=== PATIENT | male | born 1940 | race African-American/Black ===

== ENCOUNTER 2017-08-26 10:38 | Inpatient (IN) | payer MEDICARE, MEDICAID ==
[2017-08-26 11:26] LABS: #Basophils 0.1 thou/uL (0.0-0.2); #Lymphocytes 0.7 thou/uL (1.20-3.40); #Monocytes 0.6 thou/uL (0.11-0.59); #Neutrophils 4.5 thou/uL (1.40-6.50); %Basophils 1.1 % (0.0-1.0); %Eosinophils 0.2 % (0.0-10.0); %Lymphocytes 11.5 % (21.0-51.0); %Monocytes 10.3 % (0.0-10.0); %Neutrophils 76.9 % (42.0-75.0); Hemoglobin 10.5 g/dL (14.0-18.0); Mean Corpuscular HGB CONC 32.4 g/dL (32.0-36.0); Mean Corpuscular Hemoglobin 27.4 pg (27.0-31.0); Mean Corpuscular Volume 84.5 fl (80.0-94.0); Mean Platelet Volume 7.1 fL (7.4-10.4); Platelet Count 171 thou/uL (130-400); RBC Distribution Width 15.4 % (11.5-14.5); Red Blood Cell (RBC) Count 3.83 mill/uL (4.70-6.10); White Blood Cell (WBC) Count 5.9 thou/uL (4.8-10.8)
[2017-08-26 11:39] LABS: ALT (SGPT) 22 U/L (8-55); AST (SGOT) 37 U/L (5-34); Alkaline Phosphatase 106 U/L (40-150); Anion Gap 13 mmol/L (10-20); BUN (Urea Nitrogen) 44 mg/dL (8.4-25.7); Bilirubin, Total 0.3 mg/dL (0.2-1.2); Calc. Creatinine Clearance 0 mL/min (70-130); Calcium 9.7 mg/dL (7.8-10.44); Carbon Dioxide 26 mmol/L (23-31); Chloride 103 mmol/L (98-107); Estimated GFR-MDRD 55; Globulin 4.4 g/dL (2.4-3.5); Glucose 107 mg/dL (83-110); Potassium 5.1 mmol/L (3.5-5.1); Protein, Total 8.4 g/dL (5.8-8.1); Sodium 137 mmol/L (136-145)
[2017-08-26] MEDS ORDERED: Levofloxacin 500 mg/D5W 100 ml Premix Bag ONE (11:43)
--- NOTE | 2017-08-26 12:03 | RAD ---
PORTABLE CHEST: History: Dyspnea. Comparison: 02-22-17, 08-11-16 FINDINGS: Heart size is slightly enlarged. The right hilar and lower lobe changes were present on the previous exam are felt to be fairly similar. The right hilar changes may be slightly more prominent, but this could be just related to the portable technique. The parenchymal scarring in the left lung appears st able. IMPRESSION: Questionable slightly increased density to the right hilar. Some of this may just be related to the p ortable technique. I cannot exclude the possibility that there is some increase to the mass like area in the right hilar region which was noted on the prior CT of 12-23-16. It may be helpful to obtained a follow up chest CT to evaluate for interval change in this area. POS: HARJEET
[2017-08-26] MEDS ORDERED: ISOVUE-370 76%-LOCM 1 ML ONE (13:28)
[2017-08-26] MEDS ORDERED: Benzonatate 100 MG CAP PO PRN (14:50)
[2017-08-26] MEDS ORDERED: Ondansetron ODT 4 MG TAB PO PRN (16:04)
[2017-08-26] MEDS ORDERED: Acetaminophen 325 MG TAB PO PRN (16:04)
[2017-08-26] MEDS ORDERED: Guaifenesin DM 100-10/5 ML UDCUP PO PRN (16:15)
[2017-08-26] MEDS ORDERED: traMADol HCl 50 MG TAB PO PRN (16:15)
[2017-08-26] MEDS ORDERED: Milk Of Magnesia 30 ML UDCUP PO PRN (16:15)
[2017-08-26] MEDS ORDERED: Docusate 100 MG CAP PO PRN (16:15)
[2017-08-26] MEDS ORDERED: diphenhydrAMINE 25 MG CAP PO PRN (16:15)
[2017-08-26] MEDS ORDERED: Mag-Al Plus 1200 MG/1200 MG/120 MG/30 ML UDCUP PO PRN (16:15)
[2017-08-26] MEDS ORDERED: Hydrocortisone Acetate 25 MG Suppository PR PRN (16:15)
[2017-08-26] MEDS ORDERED: Bisacodyl 5 MG TAB PO PRN (16:15)
--- NOTE | 2017-08-26 18:31 | CT ---
CT CHEST WITH CONTRAST: 08/26/17 Multiple axial tomograms obtained through the chest with IV enhancement. HISTORY: Evaluate right hilar mass. Comparison made to CT of 12/23/16. A mass-like area in the right hilum has been described on prior chest CTs. This mass-like density is again seen located in the right infrahilar region surrounding a small right perihilar pulmonary arter y. This density has slightly decreased in size when compared to the 12/23/16 exam as seen on the palencia l image. It measures approximately 2.4 cm today on the coronal view where previously measurements wer e recorded at approximately 2.6 cm. it has a similar size and appearance in the axial view. It is ass ociated with some parenchymal stranding and linear scarring and/or atelectasis which also has a simil ar appearance which extends into the right middle lobe. On today's exam, there continues to be chronic changes in both posterior lung bases. There is cystic changes in the right lung base which were present previously. However, today there is more confluent density in the right posterior lung base when compared to prior study. This would be suspicious for a new inflammatory consolidation in the posterior right lower lobe today. Other chronic changes appear stable. There is linear stranding in the left upper lobe which has a sim ilar appearance. The pulmonary arteries are opacified proximally and there is no evidence of proximal pulmonary embolus. Thoracic aorta is opacified and appears unremarkable with no evidence of dissecti on. There is an anterior abdominal wall hernia in the epigastric region which was present previously and appears stable. IMPRESSION: 1. Chronic lung changes again noted which appears stable. A mass-like density in the right hilar region extending into the right middle lobe with linear opacification appears stable as described ab ove. 2. Chronic changes in the posterior right lung base with cystic change again noted. There is new opacification in the posterior right lung base today which would be concerning for an acute inflamma tory consolidation. Other chronic findings as noted above appears stable. POS: HARJEET
[2017-08-26] MEDS ORDERED: Ipratropium Bromide 2.5 ml Neb NEB SCH (19:00)
--- NOTE | 2017-08-26 20:52 | PDOC.EVN ---
Event Note - Event Note Event Note: Patient seen and examined. Case discussed with Dr. Irizarry and Aaron and their H&Ps reviewed and repeated by me. Agree with A/P. Mr. Perry is a 77 y/o BM with PMH of COPD, RA, HTN, h/o pericardial effusion who was being treated at [facility] for flu-like illness presents today with worsening dyspnea. He states he is more fatigued and generally feels worse than normal. Dyspnea is at rest and with any exertion. He denies chest pain. Also states he has increasing sputum production- yellow and mild blood tinged and low grade fever. No edema. Denies weight loss, night sweats, chills. VS reviewed Gen: mildly ill appearing, no distress CV: mild tachycardia, no m, g, r Lungs: diffuse wheezing. no crackles Ext: no edema MSK: B hands with boutiennere and swan neck deformity secondary to RA Labs and imaging reviewed. 1) Acute dyspnea- multifactoral. Differential includes Flu-like illness, COPD exacerbation, HCAP. O2 to keep sats >90-92% 2) COPD exacerbation- steroids, nebs, O2 as needed. 3) Elevated BNP- ECHO ordered. clinically does not appear overloaded as no edema or crackles 4) New RLL infiltrate on CT chest- low-grade temp and increased sputum. blood cx. Will give Levaquin and Vanc as lives in [place]- to treat HCAP 5) Flu-like illness-continue tamiflu 6) CKD stage 3, stable 7) RA- cont methotrexate.
[2017-08-26] MEDS: Folic Acid 1 MG TAB PO SCH (22:12)
[2017-08-26] MEDS: Oseltamivir 75 MG CAP PO SCH (22:12)
[2017-08-26] MEDS: Carvedilol 6.25 MG TAB PO SCH (22:12)
[2017-08-26] MEDS: Hydrocortisone 1% Cream 30 GM TUBE TOP SCH (22:15)
[2017-08-26] MEDS: Docusate 100 MG CAP PO SCH (22:15)
[2017-08-27 04:44] LABS: #Lymphocytes 0.6 thou/uL (1.20-3.40); #Monocytes 0.3 thou/uL (0.11-0.59); %Basophils 0.4 % (0.0-1.0); %Eosinophils 0.6 % (0.0-10.0); %Lymphocytes 16.2 % (21.0-51.0); %Monocytes 6.2 % (0.0-10.0); %Neutrophils 76.6 % (42.0-75.0); Hemoglobin 9.6 g/dL (14.0-18.0); Mean Corpuscular HGB CONC 32.1 g/dL (32.0-36.0); Mean Corpuscular Hemoglobin 27.4 pg (27.0-31.0); Mean Corpuscular Volume 85.4 fl (80.0-94.0); Mean Platelet Volume 7.2 fL (7.4-10.4); Platelet Count 144 thou/uL (130-400); RBC Distribution Width 15.3 % (11.5-14.5)
[2017-08-27 04:48] LABS: Anion Gap 13 mmol/L (10-20); BUN (Urea Nitrogen) 38 mg/dL (8.4-25.7); Calc. Creatinine Clearance 37 mL/min (70-130); Calcium 9.2 mg/dL (7.8-10.44); Carbon Dioxide 28 mmol/L (23-31); Chloride 102 mmol/L (98-107); Estimated GFR-MDRD 57; Glucose 102 mg/dL (83-110); Potassium 4.8 mmol/L (3.5-5.1); Sodium 138 mmol/L (136-145)
[2017-08-27 05:27] VITALS: BMI 23.8
--- NOTE | 2017-08-27 06:33 | PDOC.FM ---
- Subjective Subjective: Patient is feeling better this morning. Reports less SOB today. No acute events overnight. - Objective MAR Reviewed: Yes Vital Signs & Weight: Vital Signs (12 hours) Temp Pulse Resp BP BP Pulse Ox 08/27/17 02:01 105 H 18 95 08/26/17 22:20 104 H 16 96 08/26/17 22:12 157/56 H 08/26/17 20:00 97.9 F 102 H 20 157/56 H 96 Weight Weight 63.5 kg I&O: 08/25/17 08/26/17 08/27/17 06:59 06:59 06:59 Intake Total 120 Output Total 320 Balance -200 Result Diagrams: 08/27/17 03:23 08/27/17 03:23 <Elissa Irizarry - Last Filed: 08/27/17 09:37> - Objective Vital Signs & Weight: Vital Signs (12 hours) Temp Pulse Resp BP BP Pulse Ox 08/27/17 11:01 96 20 08/27/17 08:11 103 H 142/47 H 08/27/17 08:06 142/47 H 08/27/17 07:50 98.3 F 103 H 16 142/47 H 96 08/27/17 07:37 94 L 08/27/17 07:35 102 H 20 94 L 08/27/17 02:01 105 H 18 95 Weight Admit Weight 63.616 kg Weight 63.5 kg I&O: 08/26/17 08/27/17 08/28/17 06:59 06:59 06:59 Intake Total 120 Output Total 320 Balance -200 Result Diagrams: 08/27/17 03:23 08/27/17 03:23 <Elieser Chase - Last Filed: 08/27/17 11:16> Phys Exam - Physical Examination Constitutional: NAD HEENT: moist MMs Neck: no nodes, full ROM rales diffusely Cardiovascular: RRR, no significant murmur Gastrointestinal: soft, non-tender Musculoskeletal: no edema, pulses present obvious deformity of hands and feet from RA Neurological: moves all 4 limbs Psychiatric: A&O x 3 <Elissa Irizarry - Last Filed: 08/27/17 09:37> Dx/Plan (1) Pneumonia Code(s): J18.9 - PNEUMONIA, UNSPECIFIED ORGANISM Status: Suspected (2) Elevated brain natriuretic peptide (BNP) level Code(s): R79.89 - OTHER SPECIFIED ABNORMAL FINDINGS OF BLOOD CHEMISTRY Status : Acute (3) COPD exacerbation Code(s): J44.1 - CHRONIC OBSTRUCTIVE PULMONARY DISEASE W (ACUTE) EXACERBATION Status: Acute (4) Influenza-like illness Code(s): R69 - ILLNESS, UNSPECIFIED Status: Acute (5) Lung mass Code(s): R91.8 - OTHER NONSPECIFIC ABNORMAL FINDING OF LUNG FIELD Status: Chronic (6) GERD (gastroesophageal reflux disease) Code(s): K21.9 - GASTRO-ESOPHAGEAL REFLUX DISEASE WITHOUT ESOPHAGITIS Status: Chronic (7) Failure to thrive in adult Status: Chronic (8) CKD (chronic kidney disease) stage 3, GFR 30-59 ml/min Code(s): N18.3 - CHRONIC KIDNEY DISEASE, STAGE 3 (MODERATE) Status: Chronic (9) Normocytic anemia Code(s): D64.9 - ANEMIA, UNSPECIFIED Status: Chronic (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 - FELTY'S SYNDROME, UNSPECIFIED SITE Status: Chronic (11) HTN (hypertension) Code(s): I10 - ESSENTIAL (PRIMARY) HYPERTENSION Status: Chronic - Plan Plan: Probable New Onset CHF - elevate BNP 2700 - echo pending - lasix 40IV daily - probably contributing to SOB, but likely multifactorial with influenza-like illness and hx COPD COPD Exacerbation - severe wheezing on exam with recent increase in sputum production - Duonebs q4h - prednisone 40mg daily x5 days - O2 as needed to keep sats 88-92% Possible PNA s/p influenza-like illness - Flu negative on 08/24 and 08/26, but sx consistent - patient has been on Tamiflu, will continue course - Levaquin and Vancomycin for possible PNA seen on CT chest R Lung Mass - stable from last exam - consider consult Pulm for recs - patient with failure to thrive and smoking hx as well as blood tinged sputum, concern for malignancy COPD - continue home meds RA with Felty's Syndrome - continue home methotrexate and pain meds GERD - Protonix CKD III - renally dose meds - at baseline - monitor with new med of Lasix Normocytic Anemia - patient on Fe at home - will get iron studies, B12, and folate to confirm type of anemia - suspect Anemia of Chronic Disease Failure to Thrive - consult dietary - Ensure TID HTN - continue home Lisinopril <Elissa Irizarry - Last Filed: 08/27/17 09:37> Attending Addendum - Attending Addendum I personally evaluated the patient and discussed the management with Dr. Irizarry. I agree with the History, Examination, Assessment and Plan documented above with any addition or exceptions noted below. Pt is currently been treated for a post influenza pna, possible new onset CHF, echo pending and mild COPD exac. He has followed Dr. Clarke in the past, but has not been compliant with follow up or follow up CTs, declining f/u appointments. We will allow him to make the decision but have recommended follow up with him regarding this stable R hilar density on his CT. <Elieser Chase - Last Filed: 08/27/17 11:16>
[2017-08-27] MEDS: Docusate 100 MG CAP PO SCH ×3 (08:04→22:22)
[2017-08-27] MEDS: Ascorbic Acid 500 mg Chewable Tablet PO SCH (08:04)
[2017-08-27] MEDS: Folic Acid 1 MG TAB PO SCH ×2 (08:05→22:14)
[2017-08-27] MEDS: predniSONE 20 MG TAB PO SCH (08:05)
[2017-08-27] MEDS: Ferrous Sulfate 325 MG TAB PO SCH (08:06)
[2017-08-27] MEDS: Carvedilol 6.25 MG TAB PO SCH ×2 (08:06→22:14)
[2017-08-27] MEDS: Oseltamivir 75 MG CAP PO SCH ×2 (08:06→22:20)
[2017-08-27] MEDS: Hydrocortisone 1% Cream 30 GM TUBE TOP SCH ×2 (08:07→22:20)
[2017-08-27] MEDS: Enoxaparin Sodium 40 MG/0.4 ML SYRINGE SC SCH (08:07)
[2017-08-27] MEDS: Lisinopril 2.5 MG TAB PO SCH (08:11)
--- NOTE | 2017-08-27 08:58 | HP-2 ---
CODE STATUS: FULL. PRIMARY CARE PHYSICIAN: Sherlyn Hawthorne M.D. ATTENDING: Meron Walker M.D. RESIDENT: Elissa Irizarry D.O. HISTORIAN: Patient. CHIEF COMPLAINT: Shortness of breath. HISTORY OF PRESENT ILLNESS: The patient is a 77-year-old male with past medical history of COPD and a recent flu-like illness two days ago being treated with Tamiflu, coming from [facility] with worsening shortness of breath and cough with blood tinged yellow sputum. The patient also reports increased sputum production. Denies chest pain. No lower extremity edema as well as no fever. In the ER, he was given 500 mL bolus as well as Levaquin and vancomycin for presumed overlying pneumonia. PAST MEDICAL HISTORY: 1. Gastroesophageal reflux disease. 2. RA with Felty's syndrome. 3. Hypertension. 4. Chronic obstructive pulmonary disease. 5. Adult failure to thrive. 6. Chronic kidney disease 3. 7. Arthritis. PAST SURGICAL HISTORY: Anal polyp removed and pericardial window in 2016. ALLERGIES: No known drug allergies. MEDICATIONS: The patient is well aware of his medications that listed in the computer as such, but no doses are found. Acetaminophen, carvedilol, Colace, ferrous sulfate, folic acid, guaifenesin DM, hydrocortisone, Incruse Ellipta, DuoNebs, methotrexate, sodium, milk of magnesia, Prilosec, Tamiflu and tramadol as well as vitamin C. FAMILY HISTORY: Noncontributory. SOCIAL HISTORY: Denies current use of tobacco or any drug use, but does have former tobacco history about 1 pack a day for nearly 15 years. REVIEW OF SYSTEMS: A 12-point review of systems was performed and found to be positive for those mentioned in HPI as well as shortness of breath, cough, and generalized weakness. All other ROS negative. PHYSICAL EXAMINATION: VITAL SIGNS: Blood pressure 131/81, pulse 95, respiratory rate 24, T-max 99.1, pulse ox 100% on 2 liters, current weight 54.1 kilos. GENERAL: The patient is alert and oriented x3 in no acute distress, sitting on the edge of the bed. EYES: PERRLA, EOMI. ENT: Oropharynx within normal limits. NECK: Supple, without lymphadenopathy. CARDIOVASCULAR: Regular rate and rhythm, no murmurs. RESPIRATORY: Increased normal effort. Rales at the bases. Expiratory wheezing throughout as well as large ventral hernia. SKIN: Warm and dry. ABDOMEN: Soft, nontender. EXTREMITIES: No clubbing or cyanosis. The patient does have trace edema bilaterally. MUSCULOSKELETAL: Structure within normal limits. Tone within normal limits. NEUROLOGIC: GCS of 15. PSYCHIATRIC: Appropriate. LABORATORY DATA: 1. CBC: 5.9, 10.5, 32.4, platelets 171. 2. CMP: Sodium 137, potassium 5.1, chloride 103, CO2 of 26, BUN 45, creatinine 1.49, glucose 107, GFR of 55, calcium 9.7, total protein 8.4, albumin 4.0, AST 37, ALT 22, alkaline phosphatase 106, total bilirubin 0.3, lactic acid 1.0. 3. BNP 2700. 4. EKG with left ventricular hypertrophy and prolonged QT, normal sinus rhythm. 5. Chest x-ray shows a slightly increased density in the right hilar mass, increased mass size. IMAGING: CT was done on 12/23/2016, no new images yet as of now. ASSESSMENT AND PLAN: 1. Post-flu, pneumonia, no overt infiltrate on chest x-ray. Will get a chest CT to further evaluate. Patient not hypoxic at this time. Will continue vancomycin and Levaquin. 2. Chronic obstructive pulmonary disease. We will give DuoNebs, home meds, and consider steroids if not at home. 3. Elevated BNP. We get an echo. Give Lasix 40 IV daily 4. Rheumatoid arthritis with Felty's. Continue methotrexate. 5. Chronic kidney disease 3. Limit nephrotoxic medications. 6. Gastroesophageal reflux disease. We will provide with home medications as well as Protonix. 7. Failure to thrive, decreased appetite. Dietitian consult in place. We will give Ensure and consider mirtazapine. DISPOSITION AND LENGTH OF HOSPITAL STAY: 1-2 days. Symptomatic medications will be provided. History and physical exam as well as management will be discussed with Dr. Walker. MOODY
[2017-08-27] MEDS ORDERED: Furosemide 40 MG/4 ML VIAL SLOW IVP SCH (09:00)
[2017-08-27] MEDS ORDERED: Oseltamivir 75 MG CAP PO SCH (09:00)
[2017-08-27 09:04] LABS: Vitamin B12 1207 pg/mL (211-911)
[2017-08-27] MEDS: Vancomycin HCl 1 GM in Premix Bag 1 BAG IVPB SCH (12:08)
[2017-08-27 12:14] LABS: Folate (Folic Acid) Greater than 76.00 ng/mL (7.0-31.4)
[2017-08-28 05:55] LABS: #Lymphocytes 0.6 thou/uL (1.20-3.40); #Monocytes 0.2 thou/uL (0.11-0.59); #Neutrophils 2.8 thou/uL (1.40-6.50); %Eosinophils 0.3 % (0.0-10.0); %Lymphocytes 16.2 % (21.0-51.0); %Neutrophils 77.5 % (42.0-75.0); Hemoglobin 9.3 g/dL (14.0-18.0); Mean Corpuscular HGB CONC 32.3 g/dL (32.0-36.0); Mean Corpuscular Hemoglobin 27.4 pg (27.0-31.0); Mean Corpuscular Volume 84.9 fl (80.0-94.0); Mean Platelet Volume 7.5 fL (7.4-10.4); Platelet Count 159 thou/uL (130-400); RBC Distribution Width 15.3 % (11.5-14.5); Red Blood Cell (RBC) Count 3.39 mill/uL (4.70-6.10); White Blood Cell (WBC) Count 3.6 thou/uL (4.8-10.8)
[2017-08-28 06:35] LABS: Anion Gap 12 mmol/L (10-20); BUN (Urea Nitrogen) 59 mg/dL (8.4-25.7); Calc. Creatinine Clearance 0 mL/min (70-130); Calcium 9.4 mg/dL (7.8-10.44); Carbon Dioxide 29 mmol/L (23-31); Chloride 100 mmol/L (98-107); Estimated GFR-MDRD 45; Glucose 106 mg/dL (83-110); Potassium 4.3 mmol/L (3.5-5.1); Sodium 137 mmol/L (136-145)
--- NOTE | 2017-08-28 08:58 | PDOC.FM ---
- Subjective Subjective: Patient is sitting up on the side of the bed eating breakfast. He reports he continues to feel better but still reports some SOB and generalized not feeling well. No acute events overnight. - Objective MAR Reviewed: Yes Vital Signs & Weight: Vital Signs (12 hours) Temp Pulse Resp BP BP Pulse Ox 08/28/17 08:41 98.5 F 87 18 132/55 L 96 08/28/17 06:38 78 16 99 08/28/17 04:00 97.3 F L 76 16 157/82 H 100 08/28/17 02:44 86 16 08/28/17 00:00 97.9 F 86 16 137/64 99 08/27/17 22:18 95 16 97 08/27/17 22:14 121/58 L Weight Admit Weight 63.616 kg Weight 135.7 g I&O: 08/27/17 08/28/17 08/29/17 06:59 06:59 06:59 Intake Total 120 780 Output Total 320 600 Balance -200 180 Result Diagrams: 08/28/17 04:26 08/28/17 04:28 <Elissa Irizarry - Last Filed: 08/28/17 10:57> - Objective Vital Signs & Weight: Vital Signs (12 hours) Pulse Resp BP Pulse Ox 08/29/17 07:51 95 18 90 L 08/29/17 02:54 16 08/28/17 22:23 95 20 08/28/17 21:03 129/58 L Weight Admit Weight 63.616 kg Weight 135.7 g I&O: 08/28/17 08/29/17 08/30/17 06:59 06:59 06:59 Intake Total 780 Output Total 600 Balance 180 Result Diagrams: 08/29/17 04:28 08/29/17 04:28 <Elieser Chase - Last Filed: 08/29/17 08:57> Phys Exam - Physical Examination Constitutional: NAD HEENT: PERRLA, moist MMs Neck: no nodes, no JVD Respiratory: no wheezing mild rales at LLL Cardiovascular: RRR, no significant murmur Gastrointestinal: soft, non-tender Musculoskeletal: no edema Psychiatric: A&O x 3 <Elissa Irizarry - Last Filed: 08/28/17 10:57> Dx/Plan (1) Pneumonia Code(s): J18.9 - PNEUMONIA, UNSPECIFIED ORGANISM Status: Suspected (2) Elevated brain natriuretic peptide (BNP) level Code(s): R79.89 - OTHER SPECIFIED ABNORMAL FINDINGS OF BLOOD CHEMISTRY Status : Acute (3) COPD exacerbation Code(s): J44.1 - CHRONIC OBSTRUCTIVE PULMONARY DISEASE W (ACUTE) EXACERBATION Status: Acute (4) Influenza-like illness Code(s): R69 - ILLNESS, UNSPECIFIED Status: Acute (5) Lung mass Code(s): R91.8 - OTHER NONSPECIFIC ABNORMAL FINDING OF LUNG FIELD Status: Chronic (6) GERD (gastroesophageal reflux disease) Code(s): K21.9 - GASTRO-ESOPHAGEAL REFLUX DISEASE WITHOUT ESOPHAGITIS Status: Chronic (7) Failure to thrive in adult Status: Chronic (8) CKD (chronic kidney disease) stage 3, GFR 30-59 ml/min Code(s): N18.3 - CHRONIC KIDNEY DISEASE, STAGE 3 (MODERATE) Status: Chronic (9) Normocytic anemia Code(s): D64.9 - ANEMIA, UNSPECIFIED Status: Chronic (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 - FELTY'S SYNDROME, UNSPECIFIED SITE Status: Chronic (11) HTN (hypertension) Code(s): I10 - ESSENTIAL (PRIMARY) HYPERTENSION Status: Chronic - Plan Plan: Probable New Onset CHF - elevate BNP 2700, repeat BNP tomorrow - echo results pending - decrease to 20IV lasix daily d/t new RAYMUNDO - probably contributing to SOB, but likely multifactorial with influenza-like illness and hx COPD RAYMUNDO - Cr 1.5--> 1.77 - decrease IV Lasix Likely PNA s/p influenza-like illness - Flu negative on 08/24 and 08/26, but sx consistent - patient has been on Tamiflu, will continue course - Levaquin and Vancomycin for possible PNA seen on CT chest - continue IV Abx until blood cultures negative then transition to PO Abx COPD Exacerbation - severe wheezing on exam with recent increase in sputum production - Duonebs q4h - prednisone 40mg daily x5 days - O2 as needed to keep sats 88-92% R Lung Mass - stable from last exam - follow up with powerbuilder outpatient COPD - continue home meds RA with Felty's Syndrome - continue home methotrexate and pain meds GERD - Protonix CKD III - renally dose meds - at baseline - monitor with new med of Lasix Normocytic Anemia - patient on Fe at home, continue - Fe 16 - Ferritin High - FOBT pending Failure to Thrive - consult dietary - Ensure TID HTN - continue home Lisinopril <Elissa Irizarry - Last Filed: 08/28/17 10:57> Attending Addendum - Attending Addendum I personally evaluated the patient and discussed the management with Dr. Irizarry on 08/28/17 I agree with the History, Examination, Assessment and Plan documented above with any addition or exceptions noted below. Breathing easier. Afebrile. Lungs clearer. Wean O2. Transition meds to oral. <Elieser Chase - Last Filed: 08/29/17 08:57>
[2017-08-28] MEDS ORDERED: Furosemide 20 MG/2 ML VIAL SLOW IVP SCH (09:00)
[2017-08-28] MEDS: Lisinopril 2.5 MG TAB PO SCH (09:25)
[2017-08-28] MEDS: Ascorbic Acid 500 mg Chewable Tablet PO SCH (09:25)
[2017-08-28] MEDS: Oseltamivir 75 MG CAP PO SCH ×2 (09:25→21:03)
[2017-08-28] MEDS: Carvedilol 6.25 MG TAB PO SCH ×2 (09:25→21:03)
[2017-08-28] MEDS: Ferrous Sulfate 325 MG TAB PO SCH (09:25)
[2017-08-28] MEDS: predniSONE 20 MG TAB PO SCH (09:25)
[2017-08-28] MEDS: Folic Acid 1 MG TAB PO SCH ×2 (09:25→21:03)
[2017-08-28] MEDS: Docusate 100 MG CAP PO SCH ×2 (09:25→21:03)
[2017-08-28] MEDS: Enoxaparin Sodium 40 MG/0.4 ML SYRINGE SC SCH (09:26)
[2017-08-28] MEDS: Hydrocortisone 1% Cream 30 GM TUBE TOP SCH ×2 (09:26→21:04)
[2017-08-28 11:53] LABS: Vancomycin, Trough 15.8 ug/mL
[2017-08-28] MEDS: Vancomycin HCl 1 GM in Premix Bag 1 BAG IVPB SCH (12:19)
[2017-08-29 04:50] LABS: #Lymphocytes 0.6 thou/uL (1.20-3.40); #Monocytes 0.2 thou/uL (0.11-0.59); #Neutrophils 2.5 thou/uL (1.40-6.50); %Eosinophils 0.3 % (0.0-10.0); %Lymphocytes 18.9 % (21.0-51.0); %Monocytes 5.5 % (0.0-10.0); %Neutrophils 75.2 % (42.0-75.0); Hemoglobin 9.8 g/dL (14.0-18.0); Mean Corpuscular HGB CONC 33.4 g/dL (32.0-36.0); Mean Corpuscular Hemoglobin 28.2 pg (27.0-31.0); Mean Corpuscular Volume 84.4 fl (80.0-94.0); Mean Platelet Volume 6.9 fL (7.4-10.4); Platelet Count 159 thou/uL (130-400); Red Blood Cell (RBC) Count 3.48 mill/uL (4.70-6.10); White Blood Cell (WBC) Count 3.3 thou/uL (4.8-10.8)
[2017-08-29 05:11] LABS: Anion Gap 10 mmol/L (10-20); BUN (Urea Nitrogen) 56 mg/dL (8.4-25.7); Calc. Creatinine Clearance 0 mL/min (70-130); Calcium 9.3 mg/dL (7.8-10.44); Carbon Dioxide 30 mmol/L (23-31); Chloride 101 mmol/L (98-107); Estimated GFR-MDRD 46; Glucose 105 mg/dL (83-110); Potassium 3.9 mmol/L (3.5-5.1); Sodium 137 mmol/L (136-145)
--- NOTE | 2017-08-29 06:51 | PDOC.FM ---
- Subjective Subjective: Patient is sitting up eating breakfast. Reports he is feeling well enough to go [facility] to [facility] today. Patient is not on oxygen at the time of exam and not in any respiratory distress or having increased work of breathing. - Objective MAR Reviewed: Yes Vital Signs & Weight: Vital Signs (12 hours) Temp Pulse Resp BP BP Pulse Ox 08/29/17 02:54 16 08/28/17 22:23 95 20 08/28/17 21:03 129/58 L 08/28/17 20:00 98.5 F 95 20 129/58 L 90 L 08/28/17 19:28 88 16 Weight Admit Weight 63.616 kg Weight 135.7 g I&O: 08/27/17 08/28/17 08/29/17 06:59 06:59 06:59 Intake Total 120 780 Output Total 320 600 Balance -200 180 Result Diagrams: 08/29/17 04:28 08/29/17 04:28 <Elissa Irizarry - Last Filed: 08/29/17 07:54> - Objective Vital Signs & Weight: Vital Signs (12 hours) Pulse Resp BP Pulse Ox 08/29/17 07:51 95 18 90 L 08/29/17 02:54 16 08/28/17 22:23 95 20 08/28/17 21:03 129/58 L Weight Admit Weight 63.616 kg Weight 135.7 g I&O: 08/28/17 08/29/17 08/30/17 06:59 06:59 06:59 Intake Total 780 Output Total 600 Balance 180 Result Diagrams: 08/29/17 04:28 08/29/17 04:28 <Elieser Chase - Last Filed: 08/29/17 09:00> Phys Exam - Physical Examination Constitutional: NAD HEENT: PERRLA, moist MMs Neck: no nodes, no JVD expiratory wheezing Cardiovascular: RRR, no significant murmur Gastrointestinal: soft, non-tender Musculoskeletal: no edema, pulses present deformities of feet and hands from RA Neurological: moves all 4 limbs Psychiatric: A&O x 3 <Elissa Irizarry - Last Filed: 08/29/17 07:54> Dx/Plan (1) Pneumonia Code(s): J18.9 - PNEUMONIA, UNSPECIFIED ORGANISM Status: Suspected (2) Elevated brain natriuretic peptide (BNP) level Code(s): R79.89 - OTHER SPECIFIED ABNORMAL FINDINGS OF BLOOD CHEMISTRY Status : Acute (3) COPD exacerbation Code(s): J44.1 - CHRONIC OBSTRUCTIVE PULMONARY DISEASE W (ACUTE) EXACERBATION Status: Acute (4) Influenza-like illness Code(s): R69 - ILLNESS, UNSPECIFIED Status: Acute (5) Lung mass Code(s): R91.8 - OTHER NONSPECIFIC ABNORMAL FINDING OF LUNG FIELD Status: Chronic (6) GERD (gastroesophageal reflux disease) Code(s): K21.9 - GASTRO-ESOPHAGEAL REFLUX DISEASE WITHOUT ESOPHAGITIS Status: Chronic (7) Failure to thrive in adult Status: Chronic (8) CKD (chronic kidney disease) stage 3, GFR 30-59 ml/min Code(s): N18.3 - CHRONIC KIDNEY DISEASE, STAGE 3 (MODERATE) Status: Chronic (9) Normocytic anemia Code(s): D64.9 - ANEMIA, UNSPECIFIED Status: Chronic (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 - FELTY'S SYNDROME, UNSPECIFIED SITE Status: Chronic (11) HTN (hypertension) Code(s): I10 - ESSENTIAL (PRIMARY) HYPERTENSION Status: Chronic - Plan Plan: Probable New Onset CHF - elevate BNP 2700, repeat BNP 805 - echo results with EF 50-55%, likely diastolic dysfunction but did not comment on diastolic function - decrease to 20mg PO lasix daily d/t new RAYMUNDO - probably contributing to SOB, but likely multifactorial with influenza-like illness and hx COPD RAYMUNDO - Cr 1.5--> 1.77--> 1.73 - decrease IV Lasix Likely PNA s/p influenza-like illness - Flu negative on 08/24 and 08/26, but sx consistent - patient has been on Tamiflu, will continue course - Transition to PO Levaquin COPD Exacerbation - severe wheezing on exam with recent increase in sputum production - Duonebs q4h - prednisone 40mg daily x5 days - O2 as needed to keep sats 88-92% R Lung Mass - stable from last exam - follow up with manager filter outpatient COPD - continue home meds RA with Felty's Syndrome - continue home methotrexate and pain meds GERD - Protonix CKD III - renally dose meds - at baseline - monitor with new med of Lasix Normocytic Anemia - patient on Fe at home, continue - Fe 16 - Ferritin High - FOBT pending Failure to Thrive - consult dietary - Ensure TID HTN - continue home Lisinopril Dispo: likely d/[facility]. <Elissa Irizarry - Last Filed: 08/29/17 07:54> Attending Addendum - Attending Addendum I personally evaluated the patient and discussed the management with Dr. Irizarry[ ] I agree with the History, Examination, Assessment and Plan documented above with any addition or exceptions noted below. Patient greatly improved from a respiratory standpoint. Lungs CTAB. He is no longer requiring oxygen supplementation. Cultures are negative. He can be discharged back to shelter on Tamiflu, Levaquin, prednisone, and Lasix. <Elieser Chase - Last Filed: 08/29/17 09:00>
[2017-08-29] MEDS: Docusate 100 MG CAP PO SCH (08:52)
[2017-08-29] MEDS: Ascorbic Acid 500 mg Chewable Tablet PO SCH (08:52)
[2017-08-29] MEDS: Oseltamivir 75 MG CAP PO SCH (08:52)
[2017-08-29] MEDS: Folic Acid 1 MG TAB PO SCH (08:52)
[2017-08-29] MEDS: Ferrous Sulfate 325 MG TAB PO SCH (08:53)
[2017-08-29] MEDS: Lisinopril 2.5 MG TAB PO SCH (08:53)
[2017-08-29] MEDS: predniSONE 20 MG TAB PO SCH (08:53)
[2017-08-29] MEDS: Carvedilol 6.25 MG TAB PO SCH (08:53)
[2017-08-29] MEDS: Enoxaparin Sodium 40 MG/0.4 ML SYRINGE SC SCH (08:53)
[2017-08-29] MEDS: Hydrocortisone 1% Cream 30 GM TUBE TOP SCH (08:54)
[2017-08-29] MEDS ORDERED: Furosemide 20 MG TAB PO SCH (09:00)
[2017-08-29 09:13] VITALS: BP 140/44
[2017-08-29 09:15] VITALS: TEMP 98
[2017-09-02] MEDS ORDERED: Methotrexate Sodium 2.5 MG TAB PO SCH (09:00)
--- NOTE | 2017-09-08 11:41 | PQF ---
PAM NAIR ABBI *r [id number] -B- [id number] CLINICAL DOCUMENTATION CLARIFICATION FORM: POST DISCHARGE Addendum to original discharge summary date: ____ Late entry note date: __ DATE: 09/08/17 ATTN: DR SELLERS Please exercise your independent, professional judgment in responding to the clarification form. Clinical indicators are provided on the bottom of this form for your review Please check appropriate box(s): HEART FAILURE: A. TYPE: [ ] Systolic / HFrEF [ ] Diastolic / HFpEF [ ] Combined Systolic / Diastolic B. ACUITY [ ] Acute [ ] Acute on Chronic [ ] Chronic [ ] Other diagnosis [ ] Unable to determine In addition, please specify: Present on Admission (POA): [ ] Yes [ ] No [ ] Unable to determine For continuity of documentation, please document condition throughout progress notes and discharge summary. Thank You. CLINICAL INDICATORS - SIGNS / SYMPTOMS / LABS Ejection Fraction =__50-55____ % Dyspnea, Hypoxia Elevated BNP 2700 DOCUMENTED NEW ONSET CHF. PLEASE SPECIFY ACUITY LEVEL RISKS: CKD III Hypertension TREATMENTS: Administration of ARIANE / ARB / BB Cardiac monitoring / telemetry IV diuretics Oxygen PAM NAIR ABBI *r [id number] [employer]- [id number] CLINICAL DOCUMENTATION CLARIFICATION FORM: POST DISCHARGE Addendum to original discharge summary date: ____ Late entry note date: __ DATE: 09/08/17 ATTN: DR SELLERS Please exercise your independent, professional judgment in responding to the clarification form. Clinical indicators are provided on the bottom of this form for your review Please check appropriate box(s): HEART FAILURE: A. TYPE: [ ] Systolic / HFrEF [ ] Diastolic / HFpEF [ ] Combined Systolic / Diastolic B. ACUITY [ ] Acute [ ] Acute on Chronic [ ] Chronic [ ] Other diagnosis [ ] Unable to determine In addition, please specify: Present on Admission (POA): [ ] Yes [ ] No [ ] Unable to determine For continuity of documentation, please document condition throughout progress notes and discharge summary. Thank You. CLINICAL INDICATORS - SIGNS / SYMPTOMS / LABS Ejection Fraction =__50-55____ % Dyspnea, Hypoxia Elevated BNP 2700 DOCUMENTED NEW ONSET CHF. PLEASE SPECIFY ACUITY LEVEL RISKS: CKD III Hypertension TREATMENTS: Administration of ARIANE / ARB / BB Cardiac monitoring / telemetry IV diuretics Oxygen MTDD
== END 2017-08-29 13:57 | DRG 190 ==
LOC: ERS 10:38 → T4-B 12:44
PROVIDERS: ADMIT Family Medicine; ATTEND Family Medicine
DX: J44.1 Chronic obstructive pulmonary disease with (acute) exacerbation (principal); J10.00 Influenza due to other identified influenza virus with unspecified type of pneumonia; N17.9 Acute kidney failure, unspecified; I13.0 Hypertensive heart and chronic kidney disease with heart failure and stage 1 through stage 4 chronic kidney disease, or unspecified chronic kidney disease; J18.9 Pneumonia, unspecified organism; D64.9 Anemia, unspecified; I50.32 Chronic diastolic (congestive) heart failure; N18.3 Chronic kidney disease, stage 3 (moderate); J44.0 Chronic obstructive pulmonary disease with (acute) lower respiratory infection; M05.00 Felty's syndrome, unspecified site; K21.9 Gastro-esophageal reflux disease without esophagitis; Z87.891 Personal history of nicotine dependence; R62.7 Adult failure to thrive; R91.8 Other nonspecific abnormal finding of lung field
CPT/HCPCS: 36415; 36416; 71045; 71260; 80048; 80053; 80202; 82274; 82607; 82728; 82746; 83540; 83605; 83880; 85025; 87040; 93005; 93306; 94640; 96365; 96368; G8978-GP-CL; G8979-GP-CJ; J1650; J1940; J1956; J3370; J7506; J7620

== ENCOUNTER 2019-01-28 20:36 | Inpatient (IN) | payer MEDICARE, MEDICAID ==
[~2019-01-28 20:36] MED LIST: Calcium Chloride 1 GM/10 ML Abboject SYRINGE ONE; EPINEPHrine 1 MG/10 ML Abboject SYRINGE ONE; Iopamidol 370 76% 100 ML VIAL ONE; Magnesium 5 GM/10 ML Abboject SYRINGE ONE; Sodium Bicarb 50 MEQ/50 ML VIAL ONE
[2019-01-28 21:12] LABS: Actual Bicarbonate (HCO3a) 18.9 mEq/L (22-28); Analyzer IN Cardio ER; Calcium, Ionized 1.26 mmol/L (1.12-1.30); Carboxyhemoglobin (COHb) 0.3 gm% (0.0-3.0); Hemoglobin (Hb) 10.4 g/dL (14.0-18.0); O2 Tension (PaO2) 97.4 mmHg (> 60.0); Potassium - ABG Lab 5.26 mmol/L (3.70-5.30)
[2019-01-28 21:21] LABS: Mean Corpuscular HGB CONC 30.2 g/dL (32.0-36.0); Mean Corpuscular Hemoglobin 28.5 pg (27.0-31.0); Mean Corpuscular Volume 94.5 fL (78.0-98.0); Mean Platelet Volume 8.2 fL (7.4-10.4); Platelet Count 148 thou/uL (130-400); RBC Distribution Width 15.5 % (11.5-14.5); Red Blood Cell (RBC) Count 3.16 mill/uL (4.70-6.10); White Blood Cell (WBC) Count 7.8 thou/uL (4.8-10.8)
[2019-01-28 21:23] LABS: INR-International Normal Ratio 1.6; PTT 36.9 SEC (22.9-36.1)
[2019-01-28 21:39] LABS: Band 5 % (5-11); Hypochromia SLIGHT = 6-15 cells (100X) (0-5/hpf); Lymphocytes 46 % (21-51); MDiff Complete? YES; Monocytes 4 % (0-10); Neutrophil 45 % (42-75); Platelet Morphology Comment Appears Adequate
--- NOTE | 2019-01-28 21:40 | RAD ---
Exam: Chest one view HISTORY:Status post CPR, cardiac arrest Comparison: 08/26/2017 FINDINGS: Lungs: Diffuse bilateral interstitial and alveolar opacities Cardiac silhouette:Enlarged Pulmonary vessels: Engorged Pleural Spaces: Pleural-based density at the inferior left chest. Incomplete visualization of pleural spaces the right hemithorax. Pneumothorax: None Endotracheal tube with tip above ellis. Enteric catheter traverses to the left abdomen, below field- of-view. Extrinsic artifacts limit detail. Osseous abnormalities: None of acuity. IMPRESSION: Diffuse abnormal pulmonary parenchymal opacification bilaterally which indicates edema. Superimposed pneumonia is not excluded. CHF. Pleural-based density at the inferior left chest which may relate to pleural thickening and/or fluid. Transcribed Date/Time: 01/28/2019 9:42 PM
[2019-01-28 21:49] LABS: ALT (SGPT) 256 U/L (8-55); AST (SGOT) 282 U/L (5-34); Albumin 2.1 g/dL (3.4-4.8); Alkaline Phosphatase 67 U/L (40-150); Anion Gap 16 mmol/L (10-20); BUN (Urea Nitrogen) 37 mg/dL (8.4-25.7); Bilirubin, Total 0.3 mg/dL (0.2-1.2); CK (CPK) 79 U/L (30-200); Calc. Creatinine Clearance 0 mL/min (70-130); Calcium 7.8 mg/dL (7.8-10.44); Carbon Dioxide 21 mmol/L (23-31); Chloride 111 mmol/L (98-107); Estimated GFR-MDRD 52; Globulin 1.8 g/dL (2.4-3.5); Glucose 175 mg/dL (83-110); Potassium 4.9 mmol/L (3.5-5.1); Protein, Total 3.9 g/dL (5.8-8.1); Sodium 143 mmol/L (136-145)
[2019-01-28] MEDS ORDERED: Norepinephrine 8 MG in Dextrose 5% in Water 242 ML IVPB PRN (21:51)
[2019-01-28] MEDS ORDERED: Fentanyl 100 MCG/2 ML VIAL ONE (21:53)
[2019-01-28] MEDS ORDERED: EPINEPHrine 1 MG, Admixture Fee 1 EACH in Dextrose 5% in Water 250 ML IVPB SCH (22:00)
[2019-01-28 22:11] LABS: CKMB 3.1 ng/mL (0-6.6)
[2019-01-28 22:20] LABS: Analyzer IN Cardio ER; Base Excess (BEa) -11.2 mEq/L (-2.0 to +3.0); CO2 Tension 28.3 mmHg (35.0-45.0); Calcium, Ionized 0.83 mmol/L (1.12-1.30); Carboxyhemoglobin (COHb) 0.2 gm% (0.0-3.0); Hemoglobin (Hb) 6.1 g/dL (14.0-18.0); Potassium - ABG Lab 3.06 mmol/L (3.70-5.30); pH, Arterial 7.31 (7.35-7.45)
--- NOTE | 2019-01-28 22:57 | CT ---
CTA aortogram, with contrast with 3-D volume rendering Indication: Pain, chest pain. Findings: No acute aortic dissection. Diffuse vascular disease. Multifocal abnormal pulmonary parench ymal opacification bilaterally superimposed upon emphysema. Mild enlargement of thoracic lymph nodes, nonspecific. Ventral upper abdominal wall hernia containing ascites is present. Nodular hepati c contour is compatible with cirrhosis. There is mild scattered ascites. Enteric catheter traverses to the level of the distal stomach. Kidneys are atrophic. Parenchymal hypodensities of each kidney ar e present, incompletely characterized. Chronic osseous deformity of the sternum related to surgical change. Cardiac chambers are enlarged. IMPRESSION: No acute aortic dissection Multifocal abnormal parenchymal opacification superimposed upon emphysema, indicating atypical pneumo tessy and/or malignancy. Correlate clinically and imaging follow-up is necessary. Transcribed Date/Time: 01/28/2019 11:03 PM
[2019-01-28] MEDS ORDERED: Propofol BOLUS 1,000 MG/100 ML VIAL IV PRN ×2 (22:58→23:11)
[2019-01-28] MEDS ORDERED: Lorazepam 2 MG/ML VIAL SLOW IVP PRN ×2 (22:58→23:11)
[2019-01-28] MEDS ORDERED: DISCONTINUE PREVIOUS NARCOTIC PAIN MEDICATIONS AND BENZODIAZEPINES FS SCH ×2 (22:58→23:11)
[2019-01-28] MEDS ORDERED: Morphine 2 MG/ML SYRINGE SLOW IVP PRN ×2 (22:58→23:11)
[2019-01-28] MEDS ORDERED: Fentanyl BOLUS 250 ML IVPB PRN ×2 (22:58→23:11)
[2019-01-28] MEDS ORDERED: fentaNYL Citrate/PF 2,000 MCG in Sodium Chloride 0.9% 60 ML IV SCH ×2 (22:58→23:11)
[2019-01-28] MEDS ORDERED: Propofol 1,000 MG/100 ML VIAL IV PRN ×2 (22:58→23:11)
[2019-01-28 22:59] LABS: CO2 Tension 63.2 mmHg (35.0-45.0); Puncture Site RRA; pH, Arterial 7.09 (7.35-7.45)
[2019-01-28 23:01] LABS: O2 Tension (PaO2) 26.8 mmHg (> 60.0); Puncture Site RBA
[2019-01-28 23:02] LABS: ALV-art Gradient 650.825 (0-20)
[2019-01-28] MEDS ORDERED: CCU Electrolyte Replacement 1 EACH IVPB ONE (23:05)
[2019-01-28] MEDS ORDERED: Potassium Chloride 20 MEQ TAB PO PRN (23:11)
[2019-01-28] MEDS ORDERED: CCU ELECTROLYTE REPLACEMENT PROTOCOL FS PRN (23:11)
[2019-01-28] MEDS ORDERED: Potassium Chloride 40 MEQ in Sodium Chloride 0.9% 250 ML 250 ML IVPB PRN (23:11)
[2019-01-28] MEDS ORDERED: Magnesium Oxide 400 MG TAB PO PRN ×2 (23:11)
[2019-01-28] MEDS ORDERED: Potassium Phosphate 9 MMOL in Sodium Chloride 0.9% 100 ML IVPB PRN (23:11)
[2019-01-28] MEDS ORDERED: PHOS-NAK 1 PKT PACK PO PRN ×2 (23:11)
[2019-01-28] MEDS ORDERED: Potassium Phosphate 12 MMOL in Sodium Chloride 0.9% 250 ML 250 ML IV PRN (23:11)
[2019-01-28] MEDS ORDERED: Potassium Chloride 40 MEQ in Premix Bag 1 BAG IVPB PRN (23:11)
[2019-01-28] MEDS ORDERED: Potassium Phosphate 15 MMOL in Sodium Chloride 0.9% 250 ML 250 ML IV PRN (23:11)
[2019-01-28] MEDS ORDERED: Magnesium 2 GM/50 ML 2 GM in Premix Bag 1 BAG IVPB PRN (23:11)
[2019-01-28] MEDS ORDERED: Ventilator Sedation Protocol 1 EACH FS SCH (23:15)
[2019-01-29] MEDS: Piperacillin/Tazobactam 3.375 GM in Sodium Chloride 0.9% 100 ML IVPB SCH ×2 (00:25→06:07)
[2019-01-29 01:29] LABS: Lactic Acid 5.5 mmol/L (0.5-2.2)
[2019-01-29 01:34] LABS: Troponin I 0.437 ng/mL (< 0.028)
--- NOTE | 2019-01-29 01:48 | HP ---
HISTORY OF PRESENT ILLNESS: This is an 78-year-old male with past medical history including aortic stenosis, diastolic heart failure, EF was 50-55 percent in August of 2017, CKD 2, rheumatoid arthritis with Felty syndrome, hypertension, COPD, who was found down at the [facility]. Reports vary as to the last time that he was known normal. says she talked to him on the phone around 3:00 p.m. and he said he was feeling nauseated and sick at that time. shelter says that he was last seen well around 6:00 p.m., but EMS said they started compressions at 6:[address] when EMT personnel arrived to the [place] [facility], the patient was found to be in PEA. They started chest compressions and gave the patient epinephrine and ROSC was achieved prior to arrival to the ER. Then in the ER, the patient once again went into PEA twice and ROSC was obtained twice more. The patient ultimately received 8 doses of epinephrine, 2 amps of bicarb and 1 of calcium gluconate. The patient was never responsive throughout the time of these events. PAST MEDICAL HISTORY: Aortic stenosis, diastolic heart failure, EF was 50-55 percent in August of 2017, rheumatoid arthritis with Felty syndrome, COPD, hypertension, anemia of chronic disease, CKD 2. PAST SURGICAL HISTORY: Pericardial window in 2016. ALLERGIES: NKDA. MEDICATIONS: 1. Dicyclomine. 2. Symbicort. 3. Lasix 20 mg daily. 4. DuoNebs p.r.n. 5. Zofran. 6. Bisacodyl. 7. Tramadol 50 q.4 hours p.r.n. 8. Colace. 9. Coreg 6.25 b.i.d. 10. Iron. 11. Methotrexate 2.5 mg. 12. Folic acid. FAMILY HISTORY: Noncontributory. SOCIAL HISTORY: Former smoker, one pack a day for about 15 years. The family denies drugs or alcohol use. REVIEW OF SYSTEMS: Unobtainable secondary to unresponsive status, intubated. PHYSICAL EXAMINATION: VITAL SIGNS: Blood pressure 142/77, pulse 92, respiratory rate 22 on ventilator , O2 saturation 95 on ventilator, temperature 97.6. GENERAL: Intubated, unresponsive. HEENT: Pupils unreactive, dilated HEART: No murmur, rub, or gallop. Regular rhythm. Weak pulses in extremities. RESPIRATORY: Crackles bilaterally. ABDOMEN: Substernal hernia 4x4cm, normal bowel sounds. Soft, nontender. EXTREMITIES: Cool extremities, trace edema. NEUROLOGIC: No response to stimulation prior to intubation. Pupils nonreactive. SKIN: No breakdown noted. LABORATORY DATA: White count 7.8, hemoglobin 9.0, platelets 148. PT 19.0, PTT 36.9, blood gas 1st, pH was 7.09, 2nd was 7.31, o2 26.0, CO2 28.3. Sodium 143, potassium 4.9, bicarb 21, chloride 111, BUN 37, creatinine 1.57, lactic acid 7.4 , AST 282, ALT 256. Troponin 0.049. BNP 2944.7, procalcitonin 0.11. IMAGING: Chest x-ray shows diffuse pulmonary parenchymal opacification, possible pneumonia. CT dissection protocol shows no acute dissection, parenchymal opacification, superimposed on emphysema, possibly atypical pneumonia and/or malignancy. ASSESSMENT: 1. Status post cardiac arrest x3. Source of cardiac arrest is unclear at this time. Differential includes critical aortic stenosis, pneumonia, myocardial infarction. The patient is currently stable on epinephrine drip. We will not pursue hypothermia protocol secondary to low blood pressure and pressors. Discussed steroids with pulm and it is thought this would not be beneficial at this time. 2.Pulmonary Edema. ARDS vs pneumonia vs CHF 2/2 PEA. Blood cultures, urine cultures taken. Started on Zosyn empirically. 3. Severe Cardiogenic Shock, epinephrine drip at 10 mcg per minute. 4. Btopf-[id number] respiratory failure secondary to above, on ventilator. 5. DO NOT RESUSCITATE. PLAN: Multiple long discussions were had with and 3 daughters present. In the ER, the family stated that they did not want to pursue central line as they did not want to put the patient through any more suffering. The limitiations of treatment without central venous access were discussed at length. They also wanted to be full code at that time. The patient was transferred up to the ICU and continuing discussions were had at length with family. Ultimately, they decided that they did want to be DO NOT RESUSCITATE as prognosis after consulting with guide domestic tour Dr. Harrell were dismal. They stated that they were comfortable with DO NOT RESUSCITATE and ultimately pursued that route. Plan for now is to leave the patient on current treatment and revisit in the morning, palliative care discussions can be had at that point. The prognosis is grave and it is very likely that the patient may once again code overnight at which point the family would like to help keep him comfortable. Job ID: [id number] MOODY
[2019-01-29 02:52] LABS: Bilirubin Negative (Negative); Blood, Urine Large (Negative); Glucose, Urine (Dipstick) 100 mg/dL (Negative); Leukocyte Negative (Negative); Nitrite Negative (Negative); Protein, Urine (Dipstick) > or equal to 300 mg/dL (Neg-Trace); Urobilinogen 0.2 mg/dL (Less than 2)
[2019-01-29 02:53] LABS: Clarity Extra Turbid (Clear)
[2019-01-29 02:59] LABS: Bacteria/HPF None Seen HPF (None Seen); Mucous/LPF None Seen LPF (<2+); Oval Fat Bodies/HPF None Seen HPF (None Seen); RBC/HPF Greater than 50 HPF (0-3); Renal Epithelial None Seen HPF (None Seen); Sperm/HPF None Seen HPF (None Seen); Squamous Epithelial None Seen HPF (0-3); Transitional Epithelial None Seen HPF (None Seen); Trichomonas/HPF None Seen HPF (None Seen); WBC/HPF None Seen HPF (0-3); Yeast-Budding None Seen HPF (None Seen)
[2019-01-29 03:49] LABS: Troponin I 0.687 ng/mL (< 0.028)
[2019-01-29 04:02] LABS: ALT (SGPT) 418 U/L (8-55); AST (SGOT) 538 U/L (5-34); Alkaline Phosphatase 97 U/L (40-150); Anion Gap 20 mmol/L (10-20); BUN (Urea Nitrogen) 42 mg/dL (8.4-25.7); Bilirubin, Total 0.7 mg/dL (0.2-1.2); Calc. Creatinine Clearance 29 mL/min (70-130); Calcium 8.6 mg/dL (7.8-10.44); Carbon Dioxide 21 mmol/L (23-31); Chloride 105 mmol/L (98-107); Estimated GFR-MDRD 40; Glucose 138 mg/dL (83-110); Potassium 5.7 mmol/L (3.5-5.1); Sodium 140 mmol/L (136-145)
--- NOTE | 2019-01-29 04:11 | HP ---
TIME OF ADMISSION: 2300 hours. HISTORY OF PRESENT ILLNESS: This is attending history and physical for patient, Zana Perry. For full history and physical details, please see Dr. Arie uS's electronic history and physical. Portions of the history and physical had been repeated by myself, and I am in agreement with the assessment and plan as documented in his note. Mr. Perry is an 78-year-old male with past medical history of rheumatoid arthritis with Felty syndrome, hypertension, COPD, CKD 3, and GERD, who presented to the emergency room tonight after being [facility] at [facility]. Per report from the [facility], it is unsure how long the patient was down for; however, after they discovered him unresponsive, EMS was contacted. Apparently upon EMS arrival, the patient was noted to be in PEA. CPR and ACLS were initiated, and EMS was able to obtain return of spontaneous circulation. The patient was transferred here to the ER, where the patient went into cardiac arrest another 2 times with return of circulation each time. Otherwise, history is limited. There is some mention from the family that the patient had noted not feeling well earlier today but was overall in his usual state of health. PHYSICAL EXAMINATION: VITAL SIGNS: At the time of my exam revealed a temperature of 97.6 degrees, heart rate 88, blood pressure 124/64, MAP 84, respiratory rate 23, and oxygen saturation 100%. Of note, these vitals were obtained with the patient on ventilator support as well as 10 of epinephrine by peripheral IV. GENERAL: The patient was nonresponsive, ventilated. The patient appears overall well nourished. HEENT: Pupils were fixed and dilated, no response to light bilaterally. NG tube and ET tube noted to be in place. No facial trauma noted. CV: Revealed what appeared to be regular rate and rhythm. No murmurs auscultated. Pulses, full and equal in the upper and lower extremities bilaterally. RESPIRATORY: Revealed coarse breath sounds in all lung arredondo bilaterally. There were scattered wheezes, rhonchi, and rales. As mentioned above, the patient was requiring ventilatory support. ABDOMEN: Globular, nondistended. EXTREMITIES: The patient noted to have cool extremities but otherwise no cyanosis or edema. The patient was noted to have deformed toes on the feet bilaterally. NEURO: As above, pupils are fixed and dilated, nonresponsive to light bilaterally. The patient had previously received some sedation in the emergency department; however, he is not currently on any sedation and has no spontaneous or purposeful movement and is not currently overbreathing the ventilator. LABORATORY EVALUATION: 1. CBC: WBC 7.8, H and H 9.0 and 29.9, platelet count 148, 45% neutrophils, and 5% bands. 2. Coags reveal PT of 19, PTT of 37, and INR 1.6. 3. BMP showed sodium 143, potassium 4.9, chloride 111, bicarb 21, BUN 37, creatinine 1.57, and glucose 175. Of note, review of patient's chart reveals a baseline creatinine of approximately 1.5 over the last 2 to 3 years. 4. Lactic acid was 7.4. 5. AST and ALT were 282 and 256 respectively. 6. CK-MB 3.1. Troponin 0.049. 7. BNP 2944. 8. Procalcitonin 0.11. 9. Blood gas; initial blood gas showed a pH of 7.09, PCO2 of 63.2, and PO2 of 97.4. After initiation of ventilatory support, the patient had blood gas with pH of 7.31, PCO2 of 28.3, and PO2 of 26.8 with a calculated saturation of 44%. Of note, this was on 100% FiO2. 10. Chest x-ray revealed ET tube in correct placement. Also revealed diffuse abnormal pulmonary parenchymal opacification bilaterally and indicating massive edema noticed bilaterally. 11. CT dissection protocol revealed no acute aortic dissection and again did note multifocal abnormal parenchymal opacifications in the lungs bilaterally. There was also some mention of lung changes suggestive of an atypical pneumonia and/or malignancy. ASSESSMENT: This 78-year-old gentleman admitted for the following; 1. Cardiac arrest secondary to pulseless electrical activity, status post return of spontaneous circulation. 2. Acute hypoxic respiratory failure. 3. Suspected hypoxic versus anoxic brain injury. 4. Suspected combined metabolic and respiratory acidosis secondary to cardiopulmonary arrest. 5. Lactic acidosis. 6. Transaminitis, suspect onset of shock liver secondary to #1 above. PLAN: The patient is currently critically ill. At this current time, he has no purposeful spontaneous movement with no recent sedation given. I suspect that there is either severe hypoxic and/or anoxic neurological injury that may not be recoverable. At the current time, we are not entirely certain what the cause of the patient's arrest was; however, he is now arrested a minimum of 3 times with return of spontaneous circulation; however, this does portend a poor prognosis. The patient is currently on ventilator support as well as epinephrine with pressor support. Critical care physician, Dr. Harrell has also been consulted and we are awaiting recommendations from him. We will continue the patient on IV fluid hydration, as there would be the potential for severe hypovolemia to result in pulseless electrical activity. Trend troponins, though at the current moment, it does not appear that this is related to acute myocardial infarction or ACS. The patient does have severely elevated BNP, though this may be related to his arrest. We will continue to monitor for signs of fluid overload. His chest x-ray does show significant edema in the lung arredondo bilaterally; however, I anticipate that this is due to fluid backup from cardiac arrest. Renal function appears stable. We will continue to monitor. No current infectious source at this time, and procalcitonin is reassuring. However, the patient will be placed on Rocephin for now, and we can expand antibiotics as indicated if we identify source of infection or if he begins to have fever or show further elevation of white count. Cultures were obtained by the emergency department. Dr. Su had a lengthy discussion with the family on 2 separate occasions. At this time, it appears that they are moving towards do not resuscitate order. At the time of his visit in the emergency department, the family wanted to pursue aggressive treatments and have the patient to be full code; however, they did decline central venous catheter insertion. It was explained to them that this would limit our ability to provide supportive care if his blood pressures were to diminish and the family understands and continues to decline that. As mentioned above, I believe they are currently in the works of filling out do not resuscitate paperwork and that will be verified prior to code status being changed in the computer. As mentioned above, very poor prognosis, though we will continue to monitor through the night and provide supportive care at this time. We will add therapies on as indicated or as we refine our differential diagnosis list to the initial cause of the patient's cardiac arrest. 60 minutes of critical care time provided in the care and stabilization of the patient. Job ID: [id number]
[2019-01-29 05:46] VITALS: BMI 25.9
[2019-01-29 06:09] LABS: Band 12 % (5-11); Eosinophils 1 % (0-10); Hemoglobin 11.8 g/dL (14.0-18.0); Lymphocytes 9 % (21-51); MDiff Complete? YES; Mean Corpuscular HGB CONC 32.4 g/dL (32.0-36.0); Mean Corpuscular Hemoglobin 29.8 pg (27.0-31.0); Mean Corpuscular Volume 91.8 fL (78.0-98.0); Mean Platelet Volume 7.8 fL (7.4-10.4); Metamyelocyte 2 % (0-0); Monocytes 10 % (0-10); Neutrophil 66 % (42-75); Platelet Count 247 thou/uL (130-400); Platelet Morphology Comment Appears Adequate; RBC Distribution Width 15.7 % (11.5-14.5); RBC Morphology Normal; Red Blood Cell (RBC) Count 3.97 mill/uL (4.70-6.10); White Blood Cell (WBC) Count 13.8 thou/uL (4.8-10.8)
[2019-01-29 06:53] LABS: Potassium 5.6 mmol/L (3.5-5.1)
[2019-01-29 07:13] LABS: Lactic Acid 4.9 mmol/L (0.5-2.2)
--- NOTE | 2019-01-29 07:53 | PDOC.EVN ---
Addendum - Attending - Attending Attestation Date/Time: 01/29/19 3051 I personally evaluated the patient and discussed the management with Dr. Mackay. I agree with the History, Examination, Assessment and Plan documented in his progress note with any addition or exceptions noted below. Patient here s/p arrest with ROSC. Continues to have fixed and dilated pupils, and I now note an occasional nonpurposeful rhythmic jerking motion. No other movements noted. Vitals overall similar overnight on Epinephrine and Vent support. No spontaneous breaths. Pulm on board. Trops are trending up, likely from CPR and arrest. His other labs are consistent with fluid congestion and overload associated with cardiac arrest. LFTs uptrending. His lungs actually do sound more clear this morning compared to overnight. Family has made patient a DNAR. Renal labs increasing, and has had minimal urine output. Recheck K and lactate, likely could use fluid bolus and a little more than KVO fluids. Will discuss possibly moving towards palliative care later today as currently this looks like it may have been a catastrophic and non recoverable event for the patient. Currently, no major cause identified of the patient initial arrest.
[2019-01-29] MEDS ORDERED: Dextrose 5% in Water 1,000 ML IV SCH (08:00)
[2019-01-29 08:02] LABS: Actual Bicarbonate (HCO3a) 25.1 mEq/L (22-28); Base Excess (BEa) 1.1 mEq/L (-2.0 to +3.0); CO2 Tension 37.3 mmHg (35.0-45.0); Calcium, Ionized 1.11 mmol/L (1.12-1.30); Carboxyhemoglobin (COHb) 0.7 gm% (0.0-3.0); Hemoglobin (Hb) 11.9 g/dL (14.0-18.0); O2 Tension (PaO2) 68.7 mmHg (> 60.0); Potassium - ABG Lab 5.48 mmol/L (3.70-5.30); pH, Arterial 7.45 (7.35-7.45)
[2019-01-29 08:34] LABS: Puncture Site RB
[2019-01-29 08:35] LABS: ALV-art Gradient 597.675 (0-20)
[2019-01-29 08:41] VITALS: BP 105/57
[2019-01-29] MEDS ORDERED: Heparin 5,000 UNITS/ML VIAL SC SCH (09:00)
[2019-01-29] MEDS ORDERED: Famotidine/PF 20 mg/2ml Vial SLOW IVP SCH (09:00)
--- NOTE | 2019-01-29 09:10 | PDOC.FM ---
- Subjective Subjective: 78 yo male seen at bedside this AM. Patient is intubated and sedated. Nursing staff, reports no meaningful movements or increase in activity level. - Objective Vital Signs & Weight: Vital Signs (12 hours) Temp Pulse Resp BP Pulse Ox 01/29/19 07:52 130 H 105/57 L 90 L 01/29/19 04:00 97.5 F L 26 H 01/29/19 03:15 118 H 01/29/19 01:50 93 L 01/29/19 00:00 26 H 01/28/19 23:21 90 126/63 01/28/19 23:06 26 H 01/28/19 22:50 97.6 F Weight Weight 69 kg Most Recent Monitor Data Heart Rate from ECG 118 NIBP 137/57 NIBP BP-Mean 83 Respiration from ECG 21 SpO2 100 I&O: 01/28/19 01/29/19 01/30/19 06:59 06:59 06:59 Intake Total 259.9 Output Total 320 Balance -60.1 Result Diagrams: 01/29/19 05:19 01/29/19 06:24 Phys Exam - Physical Examination Pupils fixed and dilated. ET in place Course breath sounds bilaterally 2/6 KWABENA, tachycardic regular rhythm. Gastrointestinal: soft, positive bowel sounds 1+ pitting edema bilaterally intubated and sedated Deviation from normal: intubated and sedated Skin: no rash Dx/Plan (1) Cardiac arrest Code(s): I46.9 - CARDIAC ARREST, CAUSE UNSPECIFIED Status: Acute (2) COPD (chronic obstructive pulmonary disease) Status: Chronic (3) GERD (gastroesophageal reflux disease) Code(s): K21.9 - GASTRO-ESOPHAGEAL REFLUX DISEASE WITHOUT ESOPHAGITIS Status: Chronic (4) HTN (hypertension) Code(s): I10 - ESSENTIAL (PRIMARY) HYPERTENSION Status: Chronic Qualifiers: - Plan Plan: 1. ROSC x3 - Currently on Epinephrine drip - Family has made DNR status - Palliative care consultation - will consult cardiology 2. Acute Hypoxic Respiratory Failure - Likely due to above 3. Chronic medical problems - Will evaluate for continuation if patient survives hospitalization. CODE STATUS: DNR Disposition: Poor, will continue supportive care and coordinate with patient's family. Addendum - Attending - Attending Attestation Date/Time: 01/29/19 [id number] I personally evaluated the patient and discussed the management with Dr. Mackay. I agree with the History, Examination, Assessment and Plan documented above with any addition or exceptions noted below.
[2019-01-29 10:19] VITALS: TEMP 98.3
--- NOTE | 2019-01-29 10:35 | CON ---
DATE OF CONSULTATION: 01/29/2019 TIME SPENT: 45 minutes critical care time. CONSULTING PHYSICIAN: group. REASON FOR CONSULTATION: Critical care management. HISTORY OF PRESENT ILLNESS: The patient is an 78-year-old male, [facility] He was initially found in pulseless electrical activity around 6 p.m. His initial rhythm was pulseless electrical activity. He did achieve return of spontaneous circulation prior to arrival to the ER. Once in the ER, I believe he had 2 more episodes of PEA and was successfully resuscitated. He was on epinephrine for a time, but that has now been weaned off. He is currently on mechanical ventilation and unresponsive. PAST MEDICAL HISTORY: 1. Aortic stenosis, which is mild. 2. Diastolic cardiac dysfunction. 3. Severe chronic obstructive pulmonary disease. 4. Rheumatoid arthritis, Felty syndrome. 5. Hypertension. 6. Anemia. 7. Chronic kidney disease stage 2. PAST SURGICAL HISTORY: Pericardial window in 2016. ALLERGIES: NONE. MEDICATIONS: Prior to admission, 1. Dicyclomine. 2. Symbicort. 3. Lasix. 4. DuoNeb. 5. Zofran. 6. Bisacodyl. 7. Tramadol. 8. Colace. 9. Coreg. 10. Iron. 11. Methotrexate. 12. Folate. FAMILY MEDICAL HISTORY: Unremarkable. SOCIAL HISTORY: Former smoker, 1 pack per day for about 15 years. Does not consume alcohol. Does not use illicit drugs. REVIEW OF SYSTEMS: Cannot be obtained. The patient is currently intubated on mechanical ventilation. PHYSICAL EXAMINATION: VITAL SIGNS: Pulse 130, blood pressure 108/56, O2 saturation 88% to 90%, respiratory rate 20. GENERAL: The patient is a thin male, who is intubated. He is on some fentanyl. HEENT: Pupils are 4 mm, unreactive to light. Sclerae anicteric. Oropharynx, ET tube in place. NECK: No JVD. LUNGS: Diminished breath sounds globally throughout. CARDIOVASCULAR: S1 and S2 tachycardic without audible murmur. ABDOMEN: Distended. EXTREMITIES: No clubbing, cyanosis, or edema. LABORATORY DATA: White blood cell count 13.8, hematocrit 36.4, and platelet count 247. INR 1.6. PH of 7.44, pCO2 of 37, pO2 of 68, that was on mechanical ventilation, SIMV rate of 26, tidal volume 500, PEEP 12, pressure support 10, FiO2 100%. Sodium 140, potassium 5.7, chloride 105, CO2 of 21, BUN 42, creatinine 1.9, glucose 138, lactate 4.9, AST 538, ALT 418. IMAGING STUDIES: Chest x-ray shows diffuse bilateral infiltrates. ASSESSMENT: 1. Status post prolonged cardiopulmonary arrest. 2. Appearance of a deep anoxic brain injury. He still has some reflexes intact including spontaneous breathing. 3. Severe underlying chronic obstructive pulmonary disease. 4. History of diastolic cardiac dysfunction. 5. Mild aortic stenosis. PLAN: The patient's chances for functional recovery seems fairly dismal. The family has gone home, so I will attempt to touch base with them later. They have made the patient DNR. I would assume we would need to wait a couple of days and see if he has any neurologic recovery and consider withdrawal of care at that time, if we see no recovery. I agree with empiric antibiotics. I have added steroids and nebulization treatments. Dr. Clarke has been involved in the patient's care in the past and I will notify him of the patient's admission. Job ID: [id number]
[2019-01-29] MEDS ORDERED: methylPREDNISolone Sod Succ 40 MG VIAL IVP SCH (12:00)
--- NOTE | 2019-01-29 12:08 | RAD ---
CHEST 1 VIEW; Date: 01/29/19 INDICATION: Follow-up examination. COMPARISON: Prior exam dated 01/28/19. FINDINGS: Cardiomegaly and pulmonary vascular congestion persists, though are less prominent. Perihilar air spa ce opacities are similar appearing. Small bilateral pleural effusions persist. No pneumothorax is [place]. The patient is intubated with associated gastric catheter placement. Chronic osseous changes ar e similar appearing. IMPRESSION: 1. Improvement in the cardiomegaly and pulmonary vascular congestion. 2. Persistent perihilar air space opacity may reflect edema or pneumonia. 3. Persistent small bilateral pleural effusions. POS: BH
--- NOTE | 2019-01-29 14:12 | PDOC.EVN ---
Event Note - Event Note Event Note: Paged by nurse @ 1000 to confirm patient's . At bedside TOD was confirm as 0957. Physical exam demonstrated no pulse or auscultated heart sounds, no spontaneous respirations, and no withdrawal to painful stimuli. Family was notified at bedside. Pt was released to [facility].
[2019-01-29] MEDS ORDERED: Prevnar 13-Val Conj/PF 0.5 ML SYRINGE IM ONE (21:00)
--- NOTE | 2019-01-31 02:49 | DIS ---
DATE OF ADMISSION: 01/28/2019 DATE OF DISCHARGE: 01/29/2019 ATTENDING: Dr. Sawyer Sales MD RESIDENT: Natanael Mackay MD. DATE OF : 01/29/2019. TIME OF : 9:57 am. CAUSE OF : Pulseless electrical activity status post return of spontaneous circulation, acute hypoxic hypercapnic respiratory failure and anoxic brain injury. SECONDARY DIAGNOSES: Rheumatoid arthritis, congestive heart failure, chronic obstructive pulmonary disease, aortic stenosis, chronic kidney disease, and hypertension. HOSPITAL COURSE: The patient is an 78-year-old male who resides in a group home. The patient was last seen normal around dinner time. The patient was then found down at his group home around 6:00 p.m. EMS was able to initiate compressions around 6:00 pm and was transferred to [facility] for further care. The patient was given multiple rounds of compressions and epinephrine with ROSC prior to arrival to the ER. Then in the ER again, the patient went into PEA twice with ROSC obtained each time. The patient again received multiple rounds of epinephrine, bicarb, and calcium gluconate. The patient was never responsive to any of these types of events. The patient was initially a full code upon admission to the hospital. We then had a very long difficult conversation with the family. His overall prognosis being very poor, was relayed to them. The patient's family did not want him to suffer any longer, did not want any other invasive tests, but obviously are not willing to withdraw care at that time. The patient was on epinephrine drip. His blood pressure has normalized and so he had his epinephrine titrated down ultimately ending in cardiac arrest again. The patient was a DNR. He was not resuscitated. Nursing called for the time of at 9:57 am on 01/29/2019. Family was notified. Physical exam was completed showing no heart sounds. No respirations. No withdrawal to painful stimuli. The patient was then released to [facility]. Job ID: [id number] [id number]
== END 2019-01-29 09:57 | disposition expired | DRG 208 ==
LOC: ERS 20:36 → CCU 23:03
PROVIDERS: ADMIT Student in an Organized Health Care Education/Training Program; ATTEND Student in an Organized Health Care Education/Training Program
PROC: 0BH17EZ Insertion of Endotracheal Airway into Trachea, Via Natural or Artificial Opening (ICD-10-PCS; principal; 2019-01-29)
PROC: 5A1935Z Respiratory Ventilation, Less than 24 Consecutive Hours (ICD-10-PCS; 2019-01-29)
DX: J96.01 Acute respiratory failure with hypoxia (principal); I13.0 Hypertensive heart and chronic kidney disease with heart failure and stage 1 through stage 4 chronic kidney disease, or unspecified chronic kidney disease; G93.1 Anoxic brain damage, not elsewhere classified; I50.30 Unspecified diastolic (congestive) heart failure; E87.2 Acidosis; Z66 Do not resuscitate; R57.0 Cardiogenic shock; J96.02 Acute respiratory failure with hypercapnia; M06.9 Rheumatoid arthritis, unspecified; J44.9 Chronic obstructive pulmonary disease, unspecified; I35.0 Nonrheumatic aortic (valve) stenosis; N18.3 Chronic kidney disease, stage 3 (moderate); K21.9 Gastro-esophageal reflux disease without esophagitis; D63.1 Anemia in chronic kidney disease; Z87.891 Personal history of nicotine dependence
CPT/HCPCS: 36415; 71045; 71275; 80053; 81001; 82550; 82553; 82805; 83605; 83880; 84145; 84484; 85025; 85610; 85730; 87040; 87070; 87077; 87086; 87205; 94003; 94640; 94760; J0171; J1644; J2543; J3010; J3475; J3490; J7070; J7620; Q9967; S0028